=== PATIENT | female | born 1980 | race Caucasian/White ===

== ENCOUNTER 2017-01-29 08:12 | Emergency (ER) | payer OTHER ==
--- NOTE | 2017-01-29 09:20 | ED ORDER SUMMARY ---
..... Patient: NISH WILLIS OrderSheet [facility] VisitID: [id number] [place] [address] 36y, F Registration Date/Time: 01/29/2017 ORDER SHEET Weight: 63.5 kg (stated) Allergies: Bactrim GENERAL ORDERS: UA-Culture if indicated Urgent (08:27 01/29/2017 Mary Grace Beckman per protocol) (Ack 8:32 Juanis) (8:44 PWeiler ER Tech1) UA-Culture if indicated Urgent (08:29 01/29/2017 Heber Felipe) (Cancelled: Duplicate Order8:29 Heber Felipe) Urine Urgent (08:01/29/2017 Heber Felipe) (Ack 8:32 Juanis) (8:44 PWeiler ER Tech1) MEDICATION ORDERS: Macrobid PO 100 mg (NOW) (09:18 01/29/2017 Heber Felipe) (9:27 Mary Grace Beckman) IV FLUIDS: ORDER SHEET NOTES: [Electronically signed by Leo Gallardo R.N. (12:08 01/29/2017)] [Electronically signed by Micheal Lazar Dr. (07:42 01/31/2017)] [Electronically locked/signed by Leo Gallardo R.N. (12:08 01/29/2017)]
--- NOTE | 2017-01-29 09:20 | ED ORDER SUMMARY ---
..... Patient: NISH WILLIS OrderSheet [facility] VisitID: [id number] [place] [address] 36y, F Registration Date/Time: 01/29/2017 ORDER SHEET Weight: 63.5 kg (stated) Allergies: Bactrim GENERAL ORDERS: UA-Culture if indicated Urgent (08:27 01/29/2017 Mary Grace Beckman per protocol) (Ack 8:32 Juanis) (8:44 PWeiler ER Tech1) UA-Culture if indicated Urgent (08:29 01/29/2017 Heber Felipe) (Cancelled: Duplicate Order8:29 Heber Felipe) Urine Urgent (08:01/29/2017 Heber Felipe) (Ack 8:32 Juanis) (8:44 PWeiler ER Tech1) MEDICATION ORDERS: Macrobid PO 100 mg (NOW) (09:18 01/29/2017 Heber Felipe) (9:27 Mary Grace Beckman) IV FLUIDS: ORDER SHEET NOTES: [Electronically signed by Leo Gallardo R.N. (12:08 01/29/2017)] [Electronically signed by Micheal Lazar Dr. (07:42 01/31/2017)] [Electronically locked/signed by Leo Gallardo R.N. (12:08 01/29/2017)]
--- NOTE | 2017-01-29 09:20 | ED NURSING NOTES ---
Clinical Report - Nurses [facility] [address] [place] [address] 01/29/2017 8:14 Patient: NISH WILLIS TRIAGE Triage time 08:26. Acuity: LEVEL 4. Chief Complaint: PAINFUL URINATION and URGENCY and (low back pain). SEPSIS SCREEN: Sepsis Screen. Negative (no infection suspected/documented). VENTURA COMA SCORE: [place] Coma Scale: 15- eyes open spontaneously (4); best verbal response- oriented x 4 (5); best motor response- obeys commands (6). --08:33 Leo Gallardo R.N. 08:26 01/29/17. BP: 137/98 (regular adult cuff) taken on the left arm, while sitting. HR: 76. RR: 16. O2 saturation: 100%. Temp: 98.5 F (oral). Pain level now: 10/31. --08:33 Leo Gallardo R.N. Weight: 63.5 kg stated. Height/Length: 66 inches Per Patient. BMI: 22.6. --08:32 Leo Gallardo R.N. Medications Wellbutrin Oral 50 mg , daily. Zoloft Oral 100 mg, daily. --08:30 Leo Gallardo R.N. Allergies Bactrim. Definite Moderate(hives) --08:30 Leo Gallardo R.N. History Arrived by private vehicle. Historian: patient. PAST MEDICAL HX: Last normal menstrual period- 14 days ago. SOCIAL HX: Former smoker, end date 2009 (cigarette). Occasional alcohol use. History of drug use: marijuana. (often). ABUSE ASSESSMENT: No report of abuse. --08:33 Leo Gallardo R.N. PROBLEMS: Chest Pain of GI Origin. Chest Wall Pain. Depression. Radius Fracture. Fall. --08:31 Leo Gallardo R.N. UTI - Urinary Tract Infection. --08:32 Leo Gallardo R.N. ADDITIONAL SURGERIES: ABD surgery . --08:31 Simbeck, Leo, R.N. Interventions ID band on patient. To treatment room. --08:33 Leo Gallardo R.N. PHYSICAL ASSESSMENT 08:32. Ambulatory to room. GENERAL / NEURO / PSYCH: Alert. Oriented X 4. Appears in no acute distress. HEENT: Mucous membranes are pink. RESPIRATORY: Respirations not labored. Breath sounds within normal limits. CVS: Normal heart rate and rhythm. Capillary refill less than 2 seconds. GI / : Abdomen soft and nontender. Bowel sounds within normal limits. No vaginal bleeding. No vaginal discharge. ( per pt report. Pt reports urinary frequency, burning with urination, low back pain, onset of sx 1 week ago.). SKIN: Skin is warm and dry. --08:41 Leo Gallardo R.N. NURSING PROGRESS NOTES 08:32. Reassurance given. Two patient identifiers checked. Call light placed in reach. Bed placed in lowest position. Brakes of bed on. Patient ready for evaluation- chart flagged. --08:42 Leo Gallardo R.N. 09:20 01/29/2017 Macrobid PO Capsules 100 mg given. Allergies verified and confirmed 5 rights. --09:27 Leo Gallardo R.N. 09:27 01/29/2017 Macrobid PO Response: no adverse reaction. --09:27 Leo Gallardo R.N. DISPOSITION / DISCHARGE Departure time: 924. Condition at departure: unchanged and stable. No learning barriers present. Discharge instructions provided and reviewed with the patient. Reviewed warnings. Reviewed medication(s). Patient verbalized understanding. Written instructions provided in Khmer. The patient was discharged by the physician. She was discharged home. She left the Emergency Department ambulatory and via private vehicle. Patient driving. --09:26 Leo Gallardo R.N. Locked/Released at 01/29/2017 12:08 by Leo Gallardo R.N.
--- NOTE | 2017-01-29 09:20 | ED CLINICAL REPORT ---
Clinical Report - Physicians/Mid Levels [facility] [address] [place] [address] 01/29/2017 8:14 Patient: NISH WILLIS Time Seen: 08; initial patient contact. Arrived- By private vehicle. Historian- patient. HISTORY OF PRESENT ILLNESS Chief Complaint: DYSURIA. This started past 10 days and still present and worsening. It was abrupt in onset and has been constant but is not gone now. The symptoms are described as moderate. Modifying factors- (worse with urination. better with rest.). The patient has had lower back pain. She has had pain with urination. Similar symptoms previously: None. Recent medical care: Not recently seen/assessed. REVIEW OF SYSTEMS No fever, difficulty breathing or skin rash. All systems otherwise negative, except as recorded above. PAST HISTORY See nurses notes. Medications: Wellbutrin Oral 50 mg , daily. Zoloft Oral 100 mg, daily. Allergies: Bactrim. Definite Moderate(hives). SOCIAL HISTORY Former smoker. Alcohol use. History of drug use: marijuana. No recent travel. Is a local resident. ADDITIONAL NOTES The nursing notes have been reviewed. PHYSICAL EXAM Vital Signs: 01/29/2017 08:26 BP: 137/98. HR: 76. RR: 16. O2 saturation: 100%. Temp: 98.5 F. Pain level now: 4/10. Oxygen saturation normal. Appearance: Alert. Oriented X3. No acute distress. HEENT: Normal external inspection. ENT: Pharynx normal. Neck: Neck supple. CVS: Heart sounds normal. Respiratory: No respiratory distress. Breath sounds normal. Chest nontender. Abdomen: Soft and nontender. Bowel sounds normal. No organomegaly. No mass. Skin: Skin warm. Normal skin color. No rash. Normal skin turgor. Extremities: Extremities nontender. No lower extremity edema. LABS, X-RAYS, AND EKG Laboratory Tests: UA-Culture if indicated: (SALENA: 01/29/2017 08:30) ( MsgRcvd 01/29/2017 08:48) Final results Test Result Flag Units (Reference) URINE COLOR STRAW URINE APPEARANCE CLEAR URINE GLUCOSE NEGATIVE (NEGATIVE) URINE BILIRUBIN NEGATIVE (NEGATIVE) URINE KETONE NEGATIVE (NEGATIVE) URINE SPECIFIC GRAVITY <= 1.005 L (1.010-1.030) URINE PH 7.0 (5.0-8.0) URINE PROTEIN NEGATIVE (NEGATIVE) URINE UROBILINOGEN 0.2 EU/dL (0.2-1.0) URINE NITRITE NEGATIVE (NEGATIVE) URINE BLOOD NEGATIVE (NEGATIVE) URINE LEUK ESTERASE NEGATIVE (NEGATIVE) URINE RBC NONE SEEN rbc/hpf (0-1) URINE WBC NONE SEEN wbc/hpf (0-1) URINE EPITHELIAL CELLS 0-1 EPI/hpf (0-5) URINE BACTERIA NONE SEEN (NONE SEEN) URINE COMMENT CULT NOT INDICATED URINE CULTURES ARE SET-UP BASED ON THE FOLLOWING CRITERIA:POSITIVE NITRITEPOSITIVE LEUKOCYTE ESTERASEGREATER THAN 10 WHITE BLOOD CELLSMODERATE (2+) OR GREATER BACTERIA Urine: (SALENA: 01/29/2017 08:30) ( MsgRcvd 01/29/2017 08:41) Final results Test Result Flag Units (Reference) URINE NEGATIVE . PROGRESS AND PROCEDURES Course of Care: the patient is a 36-year-old female presenting for evaluation of urinary symptoms. Patient appears nontoxic and is in no acute distress. 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 Patient reports symptoms of dysuria. Urinalysis and tests ordered. Patient is agreeable to the treatment plan. Urinalysis does not show any signs of acute urinary tract infection. Offered patient further workup for her symptoms including laboratory studies and imaging. Patient declines at this time. Because of current literaturerecommendations for symptoms of urinary tract infection female's, feel the benefits of treating the patient for urinary tract infection despite normal urinalysis, outweighs the risks. Patient is agreeable to the treatment plan. Patient reports she will follow up with her doctor or return for any worsening. Patient understands the risk/benefit of no further work up and is agreeable. Discussed with patient her work up, diagnosis, home care, follow up and return precautions. All questions answered. Patient expressed understanding of these instructions and was agreeable to them. Disposition: Discharged. Condition: good. CLINICAL IMPRESSION Acute urinary tract infection. INSTRUCTIONS Warnings: GENERAL WARNINGS: Return or contact your physician immediately if your condition worsens or changes unexpectedly, if not improving as expected, or if other problems arise. Specifically return if pain, vomiting, bleeding, breathing difficulty or fever. Your Current Medications: CONTINUE TAKING THE FOLLOWING MEDICATIONS: Wellbutrin Oral : 50 mg daily. Zoloft Oral : 100 mg daily. Prescription Medications: Macrobid 100 mg: take 1 capsule orally every 12 hours for 5 days. No refill. Substitution is permissible. (disp 10 caps) Follow-up: Return to the emergency department as needed. Follow up with your doctor in three days. Reason for referral: recheck today's concerns. Summary of care provided to patient via paper. Screening today revealed the patient's blood pressure to be in the normal range. The patient should follow up with a primary care provider for blood pressure management. Understanding of the discharge instructions verbalized by patient. (Electronically signed by Micheal Lazar Dr. 01/31/2017 7:42)
--- NOTE | 2017-01-31 07:43 | ED MAR SUMMARY ---
..... Medication Administration Record [facility] [address] [place] [address] Patient: NISH WILLIS Visit ID: [id number] 36y, F Weight: 63.5 kg Height/Length: 66 in BMI: 22.6 ALLERGIES: Bactrim Given 09:20 01/29/2017 Leo Gallardo R.N. Medication Administered: MACROBID [PO], Dose: 100 mg Capsules PO. Medication Ordered: Macrobid PO 100 mg (NOW).
--- NOTE | 2017-01-31 07:43 | ED MED RECONCILIATION SUMMARY ---
Patient: NISH WILLIS Medication Reconciliation Report [facility] VisitID: [id number] [address] [place] [address] 36y, F Registration Date/Time: 01/29/2017 Weight: 63.5 kg Height/Length: 66 in. BMI: 22.6 ALLERGIES: Bactrim The patient's Home Medications are listed below: CONTINUE TAKING THE FOLLOWING MEDICATIONS: Wellbutrin Oral 50 mg , daily Zoloft Oral 100 mg, daily The source(s) of the original Home Medication information: Not obtained. The following Medications were given to the patient in the Emergency Department: Macrobid [PO] PO 100 mg, administered: 01/29/2017 9:20:00 AM The following Medications were prescribed to the patient: Macrobid 100 mg: take 1 capsule orally every 12 hours for 5 days. No refill. Substitution is permissible.(disp 10 caps) -- Micheal Lazar Dr.
--- NOTE | 2017-01-31 07:43 | ED MED RECONCILIATION SUMMARY ---
Patient: NISH WILLIS Medication Reconciliation Report [facility] VisitID: [id number] [address] [place] [address] 36y, F Registration Date/Time: 01/29/2017 Weight: 63.5 kg Height/Length: 66 in. BMI: 22.6 ALLERGIES: Bactrim The patient's Home Medications are listed below: CONTINUE TAKING THE FOLLOWING MEDICATIONS: Wellbutrin Oral 50 mg , daily Zoloft Oral 100 mg, daily The source(s) of the original Home Medication information: Not obtained. The following Medications were given to the patient in the Emergency Department: Macrobid [PO] PO 100 mg, administered: 01/29/2017 9:20:00 AM The following Medications were prescribed to the patient: Macrobid 100 mg: take 1 capsule orally every 12 hours for 5 days. No refill. Substitution is permissible.(disp 10 caps) -- Micheal Lazar Dr.
--- NOTE | 2017-01-31 07:43 | ED DISCHARGE INSTRUCTIONS ---
Patient: NISH WILLIS General Instructions [facility] VisitID: [id number] [place] [address] 36y, F Registration Date/Time: 01/29/2017 Acute urinary tract infection. INSTRUCTIONS Warnings: GENERAL WARNINGS: Return or contact your physician immediately if your condition worsens or changes unexpectedly, if not improving as expected, or if other problems arise. Specifically return if pain, vomiting, bleeding, breathing difficulty or fever. Your Current Medications: CONTINUE TAKING THE FOLLOWING MEDICATIONS: Wellbutrin Oral : 50 mg daily. Zoloft Oral : 100 mg daily. Prescription Medications: Macrobid 100 mg: take 1 capsule orally every 12 hours for 5 days. No refill. Substitution is permissible. (disp 10 caps) Follow-up: Return to the emergency department as needed. Follow up with your doctor in three days. Reason for referral: recheck today's concerns. Summary of care provided to patient via paper. Screening today revealed the patient's blood pressure to be in the normal range. The patient should follow up with a primary care provider for blood pressure management. Understanding of the discharge instructions verbalized by patient. ADDITIONAL INFORMATION Bladder Infection,Female (Adult) A bladder infection ("cystitis" or "UTI") usually causes a constant urge to urinate and a burning when passing urine. Urine may be cloudy, smelly or dark. There may be pain in the lower abdomen. A bladder infection occurs when bacteria from the vaginal area enter the bladder opening (urethra). This can occur from sexual intercourse, wearing tight clothing, dehydration and other factors. Home Care: Drink lots of fluids (at least 6-8 glasses a day, unless you must restrict fluids for other medical reasons). This will force the medicine into your urinary system and flush the bacteria out of your body. Avoid sexual intercourse until your symptoms are gone. Avoid caffeine, alcohol and spicy foods. These can irritate the bladder. A bladder infection is treated with antibiotics. You may also be given Pyridium (generic = phenazopyridine) to reduce the burning sensation. This medicine will cause your urine to become a bright orange color. The orange urine may stain clothing. You may wear a pad or panty-liner to protect clothing. Preventing Future Infections: Always wipe from front to back after a bowel movement. Keep the genital area clean and dry. Drink plenty of fluids each day to avoid dehydration. Both sexual partners should wash before intercourse. Urinate right after intercourse to flush out the bladder. Wear cotton underwear and cotton-lined panty hose; avoid tight-fitting pants. If you are on control pills and are having frequent bladder infections, discuss with your doctor. Follow Up: Return to this facility or see your doctor if ALL symptoms are not gone after three days of treatment. Get Prompt Medical Attention if any of the following occur: Fever of 100.4F (38C) or higher, or as directed by your healthcare provider No improvement by the third day of treatment Increasing back or abdominal pain Repeated vomiting; unable to keep medicine down Weakness, dizziness or fainting Vaginal discharge Pain, redness or swelling in the labia (outer vaginal area) Nitrofurantoin, Nitrofurantoin, Macrocrystalline Oral capsule What is this medicine? NITROFURANTOIN (alex mario keita AN toyn) is an antibiotic. It is used to treat urinary tract infections. How should I use this medicine? Take this medicine by mouth with a glass of water. Follow the directions on the prescription label. Take this medicine with food or milk. Take your doses at regular intervals. Do not take your medicine more often than directed. Do not stop taking except on your doctor's advice. Talk to your chief power dispatcher regarding the use of this medicine in children. While this drug may be prescribed for selected conditions, precautions do apply. What side effects may I notice from receiving this medicine? Side effects that you should report to your doctor or health patient care coordinator as soon as possible: allergic reactions like skin rash or hives, swelling of the face, lips, or tongue chest pain cough difficulty breathing dizziness, drowsiness fever or infection joint aches or pains pale or blue-tinted skin redness, blistering, peeling or loosening of the skin, including inside the mouth tingling, burning, pain, or numbness in hands or feet unusual bleeding or bruising unusually weak or tired yellowing of eyes or skin Side effects that usually do not require medical attention (report to your doctor or health patient care coordinator if they continue or are bothersome): dark urine diarrhea headache loss of appetite nausea or vomiting temporary hair loss What may interact with this medicine? antacids containing magnesium trisilicate probenecid quinolone antibiotics like ciprofloxacin, lomefloxacin, norfloxacin and ofloxacin sulfinpyrazone What if I miss a dose? If you miss a dose, take it as soon as you can. If it is almost time for your next dose, take only that dose. Do not take double or extra doses. Where should I keep my medicine? Keep out of the reach of children. Store at room temperature between 15 and 30 degrees C (59 and 86 degrees F). Protect from light. Throw away any unused medicine after the expiration date. What should I tell my health care provider before I take this medicine? They need to know if you have any of these conditions: anemia diabetes [id number] dehydrogenase deficiency kidney disease liver disease lung disease other chronic illness an unusual or allergic reaction to nitrofurantoin, other antibiotics, other medicines, foods, dyes or preservatives or trying to get breast-feeding What should I watch for while using this medicine? Tell your doctor or health patient care coordinator if your symptoms do not improve or if you get new symptoms. Drink several glasses of water a day. If you are taking this medicine for a long time, visit your doctor for regular checks on your progress. If you are diabetic, you may get a false positive result for sugar in your urine with certain brands of urine tests. Check with your doctor. You have been given the following additional information: Bladder Infection, Female (Adult) Nitrofurantoin, Nitrofurantoin, Macrocrystalline Oral capsule (Electronically signed by Micheal Lazar Dr. 01/31/2017 7:42)
--- NOTE | 2017-01-31 07:43 | ED MAR SUMMARY ---
..... Medication Administration Record [facility] [address] [place] [address] Patient: NISH WILLIS Visit ID: [id number] 36y, F Weight: 63.5 kg Height/Length: 66 in BMI: 22.6 ALLERGIES: Bactrim Given 09:20 01/29/2017 Leo Gallardo R.N. Medication Administered: MACROBID [PO], Dose: 100 mg Capsules PO. Medication Ordered: Macrobid PO 100 mg (NOW).
--- NOTE | 2017-01-31 07:43 | ED DISCHARGE INSTRUCTIONS ---
Patient: NISH WILLIS General Instructions [facility] VisitID: [id number] [place] [address] 36y, F Registration Date/Time: 01/29/2017 Acute urinary tract infection. INSTRUCTIONS Warnings: GENERAL WARNINGS: Return or contact your physician immediately if your condition worsens or changes unexpectedly, if not improving as expected, or if other problems arise. Specifically return if pain, vomiting, bleeding, breathing difficulty or fever. Your Current Medications: CONTINUE TAKING THE FOLLOWING MEDICATIONS: Wellbutrin Oral : 50 mg daily. Zoloft Oral : 100 mg daily. Prescription Medications: Macrobid 100 mg: take 1 capsule orally every 12 hours for 5 days. No refill. Substitution is permissible. (disp 10 caps) Follow-up: Return to the emergency department as needed. Follow up with your doctor in three days. Reason for referral: recheck today's concerns. Summary of care provided to patient via paper. Screening today revealed the patient's blood pressure to be in the normal range. The patient should follow up with a primary care provider for blood pressure management. Understanding of the discharge instructions verbalized by patient. ADDITIONAL INFORMATION Bladder Infection,Female (Adult) A bladder infection ("cystitis" or "UTI") usually causes a constant urge to urinate and a burning when passing urine. Urine may be cloudy, smelly or dark. There may be pain in the lower abdomen. A bladder infection occurs when bacteria from the vaginal area enter the bladder opening (urethra). This can occur from sexual intercourse, wearing tight clothing, dehydration and other factors. Home Care: Drink lots of fluids (at least 6-8 glasses a day, unless you must restrict fluids for other medical reasons). This will force the medicine into your urinary system and flush the bacteria out of your body. Avoid sexual intercourse until your symptoms are gone. Avoid caffeine, alcohol and spicy foods. These can irritate the bladder. A bladder infection is treated with antibiotics. You may also be given Pyridium (generic = phenazopyridine) to reduce the burning sensation. This medicine will cause your urine to become a bright orange color. The orange urine may stain clothing. You may wear a pad or panty-liner to protect clothing. Preventing Future Infections: Always wipe from front to back after a bowel movement. Keep the genital area clean and dry. Drink plenty of fluids each day to avoid dehydration. Both sexual partners should wash before intercourse. Urinate right after intercourse to flush out the bladder. Wear cotton underwear and cotton-lined panty hose; avoid tight-fitting pants. If you are on control pills and are having frequent bladder infections, discuss with your doctor. Follow Up: Return to this facility or see your doctor if ALL symptoms are not gone after three days of treatment. Get Prompt Medical Attention if any of the following occur: Fever of 100.4F (38C) or higher, or as directed by your healthcare provider No improvement by the third day of treatment Increasing back or abdominal pain Repeated vomiting; unable to keep medicine down Weakness, dizziness or fainting Vaginal discharge Pain, redness or swelling in the labia (outer vaginal area) Nitrofurantoin, Nitrofurantoin, Macrocrystalline Oral capsule What is this medicine? NITROFURANTOIN (alex mario keita AN toyn) is an antibiotic. It is used to treat urinary tract infections. How should I use this medicine? Take this medicine by mouth with a glass of water. Follow the directions on the prescription label. Take this medicine with food or milk. Take your doses at regular intervals. Do not take your medicine more often than directed. Do not stop taking except on your doctor's advice. Talk to your casey saw operator regarding the use of this medicine in children. While this drug may be prescribed for selected conditions, precautions do apply. What side effects may I notice from receiving this medicine? Side effects that you should report to your doctor or health healthcare or medical as soon as possible: allergic reactions like skin rash or hives, swelling of the face, lips, or tongue chest pain cough difficulty breathing dizziness, drowsiness fever or infection joint aches or pains pale or blue-tinted skin redness, blistering, peeling or loosening of the skin, including inside the mouth tingling, burning, pain, or numbness in hands or feet unusual bleeding or bruising unusually weak or tired yellowing of eyes or skin Side effects that usually do not require medical attention (report to your doctor or health healthcare or medical if they continue or are bothersome): dark urine diarrhea headache loss of appetite nausea or vomiting temporary hair loss What may interact with this medicine? antacids containing magnesium trisilicate probenecid quinolone antibiotics like ciprofloxacin, lomefloxacin, norfloxacin and ofloxacin sulfinpyrazone What if I miss a dose? If you miss a dose, take it as soon as you can. If it is almost time for your next dose, take only that dose. Do not take double or extra doses. Where should I keep my medicine? Keep out of the reach of children. Store at room temperature between 15 and 30 degrees C (59 and 86 degrees F). Protect from light. Throw away any unused medicine after the expiration date. What should I tell my health care provider before I take this medicine? They need to know if you have any of these conditions: anemia diabetes [id number] dehydrogenase deficiency kidney disease liver disease lung disease other chronic illness an unusual or allergic reaction to nitrofurantoin, other antibiotics, other medicines, foods, dyes or preservatives or trying to get breast-feeding What should I watch for while using this medicine? Tell your doctor or health healthcare or medical if your symptoms do not improve or if you get new symptoms. Drink several glasses of water a day. If you are taking this medicine for a long time, visit your doctor for regular checks on your progress. If you are diabetic, you may get a false positive result for sugar in your urine with certain brands of urine tests. Check with your doctor. You have been given the following additional information: Bladder Infection, Female (Adult) Nitrofurantoin, Nitrofurantoin, Macrocrystalline Oral capsule (Electronically signed by Micheal Lazar Dr. 01/31/2017 7:42)
== END 2017-01-29 09:25 | disposition home or self-care (01) ==
LOC: ED SRH 08:12
DX: N39.0 Urinary tract infection, site not specified (principal); Z79.899 Other long term (current) drug therapy; Z88.1 Allergy status to other antibiotic agents
CPT/HCPCS: 90004; 93070